=== PATIENT | female | born 1995 | race Caucasian/White ===

== ENCOUNTER 2021-07-19 20:58 | Inpatient (IN) ==
[2021-07-19] MEDS ORDERED: LACTATED RINGERS 500 ML IV PRN (21:09)
[2021-07-19] MEDS ORDERED: ONDANSETRON 4 MG/2 ML VIAL IV PRN (21:09)
[2021-07-19 21:45] LABS: Basophils % 0.3 % (0.0-0.8); Eosinophils # 0.1 10*3/uL (0.0-0.87); Eosinophils % 1.3 % (0.00-10.9); Hematocrit 34.2 VOL% (35.7-47.0); Hemoglobin 11.7 GM/DL (12.0-16.0); Immature Granulocytes % 0.5 %; Immature Granulocytes Absolute 0.05 #; Lymphocytes # 2.3 10*3/uL (1.4-4.0); Lymphocytes % 21.5 % (21.3-54.2); Mean Corpuscular HGB Conc 34.2 GM/DL (32-36); Mean Corpuscular Volume 92.7 FL (87-102); Mean Platelet Volume 11.3 FL (9.6-12.0); Monocytes % 9.1 % (1.7-12.7); Neutrophils % 67.3 % (38.7-73.9); Platelet Count 174 T/CUMM (130-400); Red Blood Count 3.69 MC/CUMM (3.8-5.5); Red Cell Distribution Width 12.4 % (9.3-17.3); White Blood Count 10.6 T/CUMM (4-12)
[2021-07-19 22:05] LABS: Alanine Aminotransferase 14 U/L (13-56); Albumin 2.8 G/DL (3.4-5.0); Alkaline Phosphatase 126 U/L (45-117); Aspartate Amino Transferase 18 U/L (0-37); Bilirubin,Total < 0.39 MG/DL (0.20-1.00); Blood Urea Nitrogen 8 MG/DL (7-18); Calcium 8.7 MG/DL (8.5-10.1); Carbon Dioxide 23 MMOL/L (21-32); Estimated Glom Filtration Rate 135 ML/MIN; Glucose 117 MG/DL (74-106); Osmolality,Calculated 271.8 MOS/KG (273-304); Potassium 3.5 MMOL/L (3.5-5.1); Sodium 137 MMOL/L (136-145); Total Protein 6.5 G/DL (6.4-8.2)
[2021-07-20] MEDS ORDERED: OXYTOCIN/LR 20 UNIT/1,000 ML BAG IV SCH (06:00)
[2021-07-20] MEDS: LACTATED RINGERS 1,000 ML IV SCH ×2 (06:37→11:47)
[2021-07-20] MEDS ORDERED: diphenhydrAMINE 50 MG/1 ML VIAL IV PRN ×2 (10:27)
[2021-07-20] MEDS ORDERED: CITRIC ACID/SODIUM CITRATE 30 ML UDCUP PO ONE (10:27)
[2021-07-20] MEDS ORDERED: PROMETHAZINE 25 MG/1 ML VIAL IM ONE (10:27)
[2021-07-20] MEDS ORDERED: ONDANSETRON 4 MG/2 ML VIAL IV ONE (10:27)
[2021-07-20] MEDS ORDERED: FAMOTIDINE 20 MG/2 ML VIAL IV ONE (10:27)
[2021-07-20] MEDS ORDERED: NALOXONE 0.4 MG/ML VIAL IV PRN (10:27)
[2021-07-20] MEDS ORDERED: ePHEDrine 50 MG/ML VIAL IV PRN (10:27)
[2021-07-20] MEDS ORDERED: hydrOXYzine HCL 25 MG/1 ML VIAL IM PRN (10:27)
[2021-07-20] MEDS: fentaNYL 2 MCG/ROPIV 0.2% EPID 100 ML EPIDURAL SCH ×2 (11:47→19:27)
[2021-07-20 13:16] LABS: Bacteria,Urine Occasional /HPF (Few); Bilirubin,Urine Negative (Negative); Blood, Urine Negative (Negative); Glucose,Urine (UA) Negative (Negative); Ketones,Urine Negative (Negative); Mucus,Urine Occasional /LPF (Occasional); Nitrite,Urine Negative (Negative); Protein,Urine Negative; RBC,Urine <1 /HPF (0-4); Urine Appearance CLEAR (Clear); Urine Color Yellow (Yellow); Urine Urobilinogen < 2.0 EU/DL (0.2-1.0)
[2021-07-20] MEDS ORDERED: METHYLERGONOVINE 0.2 MG/1 ML AMP IM PRN (19:13)
[2021-07-20] MEDS ORDERED: TRANEXAMIC ACID 1,000 MG in SODIUM CHLORIDE 0.9% 100 ML IV PRN (19:13)
[2021-07-20] MEDS ORDERED: miSOPROStoL 200 MCG TABLET RECTAL PRN (19:13)
[2021-07-20] MEDS ORDERED: CARBOPROST TROMETHAMINE 250 MCG/ML AMP IM PRN (19:13)
[2021-07-20] MEDS ORDERED: LIDOCAINE 1% 50 ML VIAL ONE (19:27)
[2021-07-20 20:21] LABS: Cord Arterial Blood HCO3 15.9 MMOL/L
[2021-07-20 20:24] LABS: Cord Venous Blood HCO3 17.9 MMOL/L; Cord Venous Blood PCO2 50.2 MMHG; Cord Venous Blood PO2 26.9
[2021-07-20] MEDS ORDERED: BENZOCAINE 20%/MENTHOL 0.5% SPRAY 56 GM CAN TOP PRN (22:31)
[2021-07-20] MEDS ORDERED: WITCH HAZEL PADS 100/JAR TOP PRN (22:31)
[2021-07-20] MEDS ORDERED: ONDANSETRON 4 MG/2 ML VIAL IV PRN (22:31)
[2021-07-20] MEDS ORDERED: ACETAMINOPHEN 325 MG TABLET PO PRN (22:31)
[2021-07-20] MEDS ORDERED: MEASLES/MUMPS/RUBELLA VACCINE 0.5 ML VIAL SUBCUT ONE (22:31)
[2021-07-20] MEDS ORDERED: RHO(D) IMMUNE GLOBULIN 300 MCG SYRINGE IM ONE (22:31)
[2021-07-20] MEDS ORDERED: DIPH/TET/ACEL PERT BOOSTER VACCINE 0.5 ML VIAL IM ONE (22:31)
[2021-07-20] MEDS ORDERED: oxyCODONE/ACETAMINOPHEN 5-325 MG TABLET PO PRN ×2 (22:31)
[2021-07-20] MEDS ORDERED: HYDROCORTISONE 2.5% RECTAL CREAM 30 GM TUBE TOP PRN (22:31)
[2021-07-20] MEDS ORDERED: BISACODYL 10 MG SUPP RECTAL PRN (22:31)
[2021-07-20] MEDS ORDERED: OXYTOCIN/LR 20 UNIT/1,000 ML BAG IV ONE (22:31)
[2021-07-20] MEDS ORDERED: LANOLIN 50% CREAM 0.3 OZ TUBE TOP PRN (22:31)
[2021-07-20] MEDS: IBUPROFEN 800 MG TABLET PO PRN (22:39)
[2021-07-21 06:21] LABS: Basophils % 0.2 % (0.0-0.8); Eosinophils # 0.1 10*3/uL (0.0-0.87); Eosinophils % 0.5 % (0.00-10.9); Hematocrit 37.8 VOL% (35.7-47.0); Hemoglobin 12.3 GM/DL (12.0-16.0); Immature Granulocytes % 0.7 %; Immature Granulocytes Absolute 0.12 #; Lymphocytes # 2.3 10*3/uL (1.4-4.0); Lymphocytes % 12.5 % (21.3-54.2); Mean Corpuscular HGB Conc 32.5 GM/DL (32-36); Mean Corpuscular Volume 95.7 FL (87-102); Mean Platelet Volume 11.9 FL (9.6-12.0); Neutrophils % 76.1 % (38.7-73.9); Platelet Count 179 T/CUMM (130-400); Red Blood Count 3.95 MC/CUMM (3.8-5.5); Red Cell Distribution Width 12.5 % (9.3-17.3); White Blood Count 18.2 T/CUMM (4-12)
[2021-07-21] MEDS: DOCUSATE SODIUM 100 MG CAPSULE PO SCH ×3 (07:50→21:39)
[2021-07-21] MEDS: IBUPROFEN 800 MG TABLET PO PRN (07:51)
[2021-07-22] MEDS: IBUPROFEN 800 MG TABLET PO PRN (04:03)
[2021-07-22] MEDS: DOCUSATE SODIUM 100 MG CAPSULE PO SCH (08:03)
[2021-07-22 08:42] VITALS: BP 103/74
[2021-07-22] MEDS ORDERED: DIPH/TET/ACEL PERT BOOSTER VACCINE 0.5 ML VIAL IM ONE (10:08)
== END 2021-07-22 12:37 | disposition home or self-care (01) | DRG 807 ==
LOC: N.LDOUT 20:58 → N.LD 20:59 → N.OB 07-20 23:00
PROVIDERS: ADMIT Specialist; ATTEND Specialist

== ENCOUNTER 2022-08-29 20:04 | Inpatient (IN) ==
[2022-08-29] MEDS ORDERED: OXYTOCIN/LR 20 UNIT/1,000 ML BAG IV ONE (20:12)
[2022-08-29] MEDS ORDERED: CARBOPROST TROMETHAMINE 250 MCG/ML AMP IM PRN (20:12)
[2022-08-29] MEDS ORDERED: METHYLERGONOVINE 0.2 MG/1 ML AMP IM PRN (20:12)
[2022-08-29] MEDS ORDERED: TRANEXAMIC ACID 1,000 MG in SODIUM CHLORIDE 0.9% 100 ML IV PRN (20:12)
[2022-08-29] MEDS ORDERED: ONDANSETRON 4 MG/2 ML VIAL IV PRN (20:12)
[2022-08-29] MEDS ORDERED: LACTATED RINGERS 500 ML IV PRN (20:12)
[2022-08-29] MEDS ORDERED: miSOPROStoL 200 MCG TABLET RECTAL PRN (20:12)
[2022-08-29] MEDS ORDERED: OXYTOCIN/LR 20 UNIT/1,000 ML BAG IV SCH (20:30)
[2022-08-29 20:43] LABS: Basophils % 0.1 % (0.0-0.8); Eosinophils # 0.1 10*3/uL (0.0-0.87); Eosinophils % 1.3 % (0.00-10.9); Hematocrit 38.1 VOL% (35.7-47.0); Hemoglobin 12.8 GM/DL (12.0-16.0); Immature Granulocytes % 0.3 %; Immature Granulocytes Absolute 0.03 #; Lymphocytes # 2.2 10*3/uL (1.4-4.0); Lymphocytes % 24.3 % (21.3-54.2); Mean Corpuscular HGB Conc 33.6 GM/DL (32-36); Mean Platelet Volume 11.7 FL (9.6-12.0); Monocytes # 0.9 10*3/uL (0.11-0.8); Monocytes % 10.1 % (1.7-12.7); Neutrophils % 63.9 % (38.7-73.9); Platelet Count 171 T/CUMM (130-400); Red Blood Count 4.14 MC/CUMM (3.8-5.5); Red Cell Distribution Width 12.8 % (9.3-17.3); White Blood Count 9.2 T/CUMM (4-12)
[2022-08-29 20:44] LABS: Bilirubin,Urine Negative (Negative); Blood, Urine Negative (Negative); Glucose,Urine (UA) Negative (Negative); Ketones,Urine Negative (Negative); Nitrite,Urine Negative (Negative); Protein,Urine Negative (Negative); RBC,Urine 1 /HPF (0-4); Squamous Epithelial Cell,Urine Occasional /HPF (0-10); Urine Appearance Clear (Clear); Urine Color Yellow (Yellow); Urine Specific Gravity 1.015 (1.001-1.035); Urine Urobilinogen 0.2 eU/dL (<2.0); Urine pH 7.5 (4.5-8.0)
[2022-08-29 20:56] LABS: Alanine Aminotransferase 18 U/L (13-56); Albumin 2.8 G/DL (3.4-5.0); Alkaline Phosphatase 139 U/L (45-117); Aspartate Amino Transferase 27 U/L (0-37); Bilirubin,Total < 0.39 MG/DL (0.20-1.00); Blood Urea Nitrogen 8 MG/DL (7-18); Calcium 8.5 MG/DL (8.5-10.1); Carbon Dioxide 23 MMOL/L (21-32); Chloride 108 MMOL/L (98-107); Glucose 91 MG/DL (74-106); Osmolality,Calculated 272.7 MOS/KG (273-304); Potassium 3.8 MMOL/L (3.5-5.1); Sodium 138 MMOL/L (136-145); Total Protein 6.7 G/DL (6.4-8.2)
[2022-08-29] MEDS ORDERED: AMPICILLIN INJ 2,000 MG in SODIUM CHLORIDE 0.9% 100 ML IV ONE (22:55)
[2022-08-30] MEDS ORDERED: ACETAMINOPHEN 500 MG TABLET PO ONE (01:52)
[2022-08-30] MEDS: AMPICILLIN INJ 1,000 MG in SODIUM CHLORIDE 0.9% 100 ML IV SCH ×3 (02:39→11:20)
[2022-08-30] MEDS: LACTATED RINGERS 1,000 ML IV SCH ×3 (02:39→11:07)
[2022-08-30] MEDS ORDERED: FAMOTIDINE 20 MG/2 ML VIAL IV ONE (06:17)
[2022-08-30] MEDS ORDERED: NALOXONE 0.4 MG/ML VIAL IV PRN (06:17)
[2022-08-30] MEDS ORDERED: ePHEDrine 50 MG/ML VIAL IV PRN (06:17)
[2022-08-30] MEDS ORDERED: diphenhydrAMINE 50 MG/1 ML VIAL IV PRN ×2 (06:17)
[2022-08-30] MEDS ORDERED: CITRIC ACID/SODIUM CITRATE 30 ML UDCUP PO ONE (06:17)
[2022-08-30] MEDS ORDERED: fentaNYL 2 MCG/ROPIV 0.2% EPID 100 ML EPIDURAL SCH (06:30)
[2022-08-30] MEDS ORDERED: miSOPROStoL 200 MCG TABLET ONE (08:18)
[2022-08-30] MEDS ORDERED: METHYLERGONOVINE 0.2 MG/1 ML AMP ONE (08:18)
[2022-08-30] MEDS ORDERED: SODIUM CHLORIDE 0.9% 0 ML IV ONE (08:18)
[2022-08-30] MEDS ORDERED: TRANEXAMIC ACID 1,000 MG/10 ML VIAL ONE (08:18)
[2022-08-30] MEDS ORDERED: CARBOPROST TROMETHAMINE 250 MCG/ML AMP IM ONE (08:18)
[2022-08-30 09:09] LABS: RBC,Urine <1 /HPF (0-4)
[2022-08-30 09:10] LABS: Bilirubin,Urine Negative (Negative); Blood, Urine Negative (Negative); Glucose,Urine (UA) Negative (Negative); Ketones,Urine Trace mg/dL (Negative); Nitrite,Urine Negative (Negative); Protein,Urine Negative (Negative); Urine Appearance Clear (Clear); Urine Color Yellow (Yellow); Urine Specific Gravity 1.015 (1.001-1.035); Urine Urobilinogen 0.2 eU/dL (<2.0)
[2022-08-30 12:13] LABS: Cord Venous Blood HCO3 23.8 MMOL/L; Cord Venous Blood PCO2 45.5 MMHG; Cord Venous Blood PO2 35.2
[2022-08-30] MEDS ORDERED: MEASLES/MUMPS/RUBELLA VACCINE 0.5 ML VIAL SUBCUT ONE (14:39)
[2022-08-30] MEDS ORDERED: HYDROCORTISONE 2.5% RECTAL CREAM 30 GM TUBE TOP PRN (14:39)
[2022-08-30] MEDS ORDERED: ACETAMINOPHEN 325 MG TABLET PO PRN (14:39)
[2022-08-30] MEDS ORDERED: ONDANSETRON 4 MG/2 ML VIAL IV PRN (14:39)
[2022-08-30] MEDS ORDERED: oxyCODONE/ACETAMINOPHEN 5-325 MG TABLET PO PRN (14:39)
[2022-08-30] MEDS ORDERED: OXYTOCIN/LR 20 UNIT/1,000 ML BAG IV ONE (14:39)
[2022-08-30] MEDS ORDERED: BISACODYL 10 MG SUPP RECTAL PRN (14:39)
[2022-08-30] MEDS ORDERED: LANOLIN 50% CREAM 0.3 OZ TUBE TOP PRN (14:39)
[2022-08-30] MEDS ORDERED: RHO(D) IMMUNE GLOBULIN 300 MCG SYRINGE IM ONE (14:39)
[2022-08-30] MEDS ORDERED: WITCH HAZEL PADS 100/JAR TOP PRN (14:39)
[2022-08-30] MEDS ORDERED: DIPH/TET/ACEL PERT BOOSTER VACCINE 0.5 ML VIAL IM ONE (14:39)
[2022-08-30] MEDS ORDERED: BENZOCAINE 20%/MENTHOL 0.5% SPRAY 56 GM CAN TOP PRN (14:39)
[2022-08-30] MEDS: IBUPROFEN 800 MG TABLET PO PRN (19:56)
[2022-08-30] MEDS: oxyCODONE/ACETAMINOPHEN 5-325 MG TABLET PO PRN (19:57)
[2022-08-30] MEDS: DOCUSATE SODIUM 100 MG CAPSULE PO SCH (20:51)
[2022-08-31 06:14] LABS: Basophils % 0.3 % (0.0-0.8); Eosinophils # 0.2 10*3/uL (0.0-0.87); Hematocrit 34.3 VOL% (35.7-47.0); Hemoglobin 11.1 GM/DL (12.0-16.0); Immature Granulocytes % 0.5 %; Immature Granulocytes Absolute 0.06 #; Lymphocytes # 2.7 10*3/uL (1.4-4.0); Lymphocytes % 23.8 % (21.3-54.2); Mean Corpuscular HGB Conc 32.4 GM/DL (32-36); Mean Corpuscular Volume 94.2 FL (87-102); Mean Platelet Volume 12.3 FL (9.6-12.0); Monocytes % 8.8 % (1.7-12.7); Neutrophils % 64.6 % (38.7-73.9); Platelet Count 142 T/CUMM (130-400); Red Blood Count 3.64 MC/CUMM (3.8-5.5); White Blood Count 11.2 T/CUMM (4-12)
[2022-08-31] MEDS: MULTIVITAMIN (PRENATAL) TABLET PO SCH (08:12)
[2022-08-31] MEDS: IBUPROFEN 800 MG TABLET PO PRN ×2 (08:13→21:07)
[2022-08-31] MEDS: DOCUSATE SODIUM 100 MG CAPSULE PO SCH ×2 (08:13→21:07)
[2022-09-01] MEDS: oxyCODONE/ACETAMINOPHEN 5-325 MG TABLET PO PRN (06:00)
[2022-09-01 07:22] VITALS: BP 109/70
[2022-09-01] MEDS: MULTIVITAMIN (PRENATAL) TABLET PO SCH (08:08)
[2022-09-01] MEDS: DOCUSATE SODIUM 100 MG CAPSULE PO SCH (08:08)
== END 2022-09-01 11:40 | disposition home or self-care (01) | DRG 807 ==
LOC: N.LDOUT 20:04 → N.LD 20:06 → N.OB 08-30 14:39
PROVIDERS: ADMIT Specialist; ATTEND Specialist